=== PATIENT | female | born 1960 | race Caucasian/White ===

== ENCOUNTER 2020-12-08 15:31 | Outpatient (REF) | payer OTHER, SELFPAY ==
[2020-12-08 16:20] LABS: Influenza A PCR NEGATIVE (Negative); Influenza B PCR NEGATIVE (Negative); Resp Syncy Virus RNA Qual PCR NEGATIVE (Negative); SARS COV2 PCR INHOUSE NEGATIVE (Negative)
== END 2020-12-08 15:32 | disposition home or self-care (01) ==
LOC: HO.LNP 15:31
PROVIDERS: Visit Provider Internal Medicine
DX: M79.10 Myalgia, unspecified site (principal); Z20.822 Contact with and (suspected) exposure to COVID-19; J34.89 Other specified disorders of nose and nasal sinuses
CPT/HCPCS: 0241U

== ENCOUNTER 2021-09-02 12:53 | Outpatient (REF) | payer OTHER, SELFPAY ==
[2021-09-04 06:47] LABS: Lyme Abs Screen <0.90 index
== END 2021-09-02 12:54 | disposition home or self-care (01) ==
LOC: HO.HMGCLDS 12:53
PROVIDERS: PCP Internal Medicine; Visit Provider Internal Medicine
DX: T14.8XXA Other injury of unspecified body region, initial encounter (principal); W57.XXXA Bitten or stung by nonvenomous insect and other nonvenomous arthropods, initial encounter; Y93.9 Activity, unspecified; Y92.9 Unspecified place or not applicable; Y99.9 Unspecified external cause status
CPT/HCPCS: 36415; 86617; 86618

== ENCOUNTER 2021-11-26 13:59 | Outpatient (REF) | payer OTHER, SELFPAY ==
[2021-11-26 15:21] LABS: Influenza A PCR NEGATIVE (Negative); Influenza B PCR NEGATIVE (Negative); Resp Syncy Virus RNA Qual PCR NEGATIVE (Negative); SARS COV2 PCR INHOUSE NEGATIVE (Negative)
== END 2021-11-26 14:00 | disposition home or self-care (01) ==
LOC: HO.LNP 13:59
PROVIDERS: Visit Provider Internal Medicine
DX: Z20.822 Contact with and (suspected) exposure to COVID-19 (principal)
CPT/HCPCS: 0241U

== ENCOUNTER 2022-03-18 09:34 | Outpatient (REF) | payer OTHER, SELFPAY ==
[2022-03-20 05:21] LABS: Lyme Abs Screen <0.90 index
== END 2022-03-18 09:35 | disposition home or self-care (01) ==
LOC: HO.HMGCLDS 09:34
PROVIDERS: Visit Provider Internal Medicine
DX: T14.8XXA Other injury of unspecified body region, initial encounter (principal); W57.XXXA Bitten or stung by nonvenomous insect and other nonvenomous arthropods, initial encounter
CPT/HCPCS: 36415; 86617; 86618

== ENCOUNTER 2022-12-20 11:41 | Outpatient (REF) | payer OTHER, SELFPAY ==
[2022-12-20 12:39] LABS: Influenza A PCR NEGATIVE (Negative); Influenza B PCR NEGATIVE (Negative); Resp Syncy Virus RNA Qual PCR NEGATIVE (Negative); SARS COV2 PCR INHOUSE POSITIVE (Negative)
== END 2022-12-20 11:42 | disposition home or self-care (01) ==
LOC: HO.LNP 11:41
PROVIDERS: Visit Provider Internal Medicine
DX: Z20.822 Contact with and (suspected) exposure to COVID-19 (principal); R05.9 Cough, unspecified; R68.83 Chills (without fever)
CPT/HCPCS: 0241U

== ENCOUNTER 2023-03-09 06:10 | Outpatient (REF) | payer OTHER, SELFPAY ==
[2023-03-09 11:27] LABS: MANUAL DIFF FLAG NO
[2023-03-09 11:37] LABS: Basophils Percent Auto 0.9 % (0-2); Eosinophils Absolute Auto 0.1 X10*3/uL (0.0-0.4); Eosinophils Percent Auto 3.1 % (0-4); Hematocrit 46.7 % (37.0-47.0); Hemoglobin 14.8 g/dl (12.0-16.0); Imm Gran Abs Auto 0.01 X10*3/uL (0.00-0.03); Imm Gran Pct Auto 0.2 % (0.0-0.4); Lymphocytes Absolute Auto 1.9 X10*3/uL (1.2-4.9); Lymphocytes Percent Auto 41.8 % (20-40); Mean Corpuscular HGB Conc 31.7 g/dl (31.0-35.0); Mean Corpuscular Hemoglobin 29.7 pg (27.0-33.0); Mean Corpuscular Volume 93.8 fL (80.0-98.0); Mean Platelet Volume 11.4 fL (9.4-12.3); Monocytes Absolute Auto 0.4 X10*3/uL (0.1-1.2); Monocytes Percent Auto 7.9 % (2-11); Neutrophils Absolute Auto 2.1 x10*3/uL (2.0-8.3); Neutrophils Percent Auto 46.1 % (45-73); Platelet Count 188 X10*3/uL (160-400); Red Blood Count 4.98 X10*6/uL (4.20-5.50); Red Cell Distribution Width 13.2 % (11.0-16.0); White Blood Count 4.5 X10*3/uL (4.8-10.8)
[2023-03-09 12:09] LABS: Alanine Aminotransferase 17 U/L (0-31); Albumin Level 4.2 g/dL (3.5-5.0); Alkaline Phosphatase 63 U/L (39-117); Anion Gap 11 (12-20); Aspartate Amino Transferase 19 U/L (5-31); Bilirubin Total 0.7 mg/dL (0.0-1.0); Blood Urea Nitrogen 16 mg/dL (9-16); Calcium 9.4 mg/dL (8.4-10.2); Carbon Dioxide 29 mmol/L (22-29); Chloride 107 mmol/L (96-108); Cholesterol 318 mg/dL; Estimated Glomerular Filt Rate > 60; Glucose Fasting 95 mg/dL (60-99); HDL Cholesterol 69 mg/dL; LDL Cholesterol Calculated 233 mg/dl; Magnesium 2.1 mg/dL (1.6-2.6); Sodium 142 mmol/L (135-145); Total Protein 6.5 g/dL (6.5-8.0); Triglycerides 81 mg/dL
[2023-03-09 12:28] LABS: Thyroid Stimulating Hormone 5.15 uIU/mL (0.32-4.0)
== END 2023-03-09 06:11 | disposition home or self-care (01) ==
LOC: HO.HMGCLDS 06:10
PROVIDERS: PCP Internal Medicine; Visit Provider Internal Medicine
DX: Z00.00 Encounter for general adult medical examination without abnormal findings (principal); E03.9 Hypothyroidism, unspecified
CPT/HCPCS: 36415; 80053; 80061; 83735; 84439; 84443; 85025

== ENCOUNTER 2023-09-07 09:46 | Outpatient (REF) | payer OTHER, SELFPAY ==
--- NOTE | ~2023-09-07 | MM_ITS ---
EXAMINATION: MM SCREENING DIGITAL BREAST TOMOSYNTHESIS, BILATERAL CLINICAL INFORMATION: Screening. Asymptomatic. COMPARISON: Mammography: This study is compared with prior exams dating back to 2009. TECHNIQUE: Digital breast tomosynthesis is performed in both the craniocaudal and mediolateral oblique views along with computer-aided detection (CAD). Synthesized 2D images are generated from the tomosynthesis. FINDINGS: The breasts are heterogeneously dense, which may obscure small masses (ACR BI-RADS breast composition Category c). There are no significant masses, abnormal calcifications, or other abnormalities. Benign calcifications are present in each breast. MM/MM tomosynthesis screening BI IMPRESSION: No mammographic evidence of malignancy. ASSESSMENT: BI-RADS BI-RADS 2 - Benign Findings RECOMMENDATION: Routine annual mammography screening. 1 year F/U This examination should not preclude the clinical evaluation of a suspicious palpable abnormality. This patient's information was entered into a reminder system with a target due date for their next mammogram.
== END 2023-09-07 09:47 | disposition home or self-care (01) ==
LOC: HO.MAMMO 09:46
PROVIDERS: PCP Internal Medicine; Visit Provider Internal Medicine
DX: Z12.31 Encounter for screening mammogram for malignant neoplasm of breast (principal)
CPT/HCPCS: 77063; 77067

== ENCOUNTER → 2023-09-07 10:00 | Outpatient (BNV) | payer OTHER, SELFPAY | PROVIDERS: PCP Internal Medicine; Visit Provider Radiology Diagnostic Radiology | DX: Z12.31 Encounter for screening mammogram for malignant neoplasm of breast (principal) | CPT/HCPCS: 77063; 77067 ==

== ENCOUNTER 2024-04-16 14:54 | Outpatient (REF) | payer OTHER, SELFPAY ==
--- NOTE | ~2024-04-16 | XR_ITS ---
EXAMINATION: XR SINUSES CLINICAL INFORMATION: Sinus pressure for 24 hours, worse on the right side COMPARISON: X-ray sinuses on 02/05/2013 TECHNIQUE: Cintron, Roly, submental vertical and lateral views of the sinuses were obtained. FINDINGS: Paranasal sinuses appear clear without air-fluid levels. Nasal septum is midline. No fractures are identified. No radiodense foreign bodies. XR/XR sinus min 3V IMPRESSION: Unchanged normal sinus x-ray.
== END 2024-04-16 14:55 | disposition home or self-care (01) ==
LOC: HO.XRAY 14:54
PROVIDERS: PCP Internal Medicine; Visit Provider Internal Medicine
DX: J34.89 Other specified disorders of nose and nasal sinuses (principal)
CPT/HCPCS: 70220

== ENCOUNTER 2024-09-07 16:34 | Outpatient (REF) | payer OTHER, SELFPAY ==
[2024-09-07 16:43] LABS: MANUAL DIFF FLAG NO
[2024-09-07 17:10] LABS: Basophils Percent Auto 0.5 % (0-2); Eosinophils Absolute Auto 0.1 X10*3/uL (0.0-0.4); Eosinophils Percent Auto 1.4 % (0-4); Hematocrit 45.4 % (37.0-47.0); Hemoglobin 15.3 g/dl (12.0-16.0); Imm Gran Abs Auto 0.02 X10*3/uL (0.00-0.03); Imm Gran Pct Auto 0.2 % (0.0-0.4); Lymphocytes Absolute Auto 1.3 X10*3/uL (1.2-4.9); Lymphocytes Percent Auto 15.2 % (20-40); Mean Corpuscular HGB Conc 33.7 g/dl (31.0-35.0); Mean Corpuscular Hemoglobin 31.1 pg (27.0-33.0); Mean Corpuscular Volume 92.3 fL (80.0-98.0); Mean Platelet Volume 10.5 fL (9.4-12.3); Monocytes Absolute Auto 0.5 X10*3/uL (0.1-1.2); Neutrophils Absolute Auto 6.6 x10*3/uL (2.0-8.3); Neutrophils Percent Auto 76.7 % (45-73); Platelet Count 195 X10*3/uL (160-400); Red Blood Count 4.92 X10*6/uL (4.20-5.50); Red Cell Distribution Width 12.9 % (11.0-16.0); White Blood Count 8.6 X10*3/uL (4.8-10.8)
[2024-09-07 17:37] LABS: Alanine Aminotransferase 54 U/L (0-31); Albumin Level 4.4 g/dL (3.5-5.0); Alkaline Phosphatase 64 U/L (39-117); Anion Gap 12 (12-20); Aspartate Amino Transferase 52 U/L (5-31); Blood Urea Nitrogen 10 mg/dL (9-16); Calcium 9.6 mg/dL (8.4-10.2); Carbon Dioxide 28 mmol/L (22-29); Chloride 104 mmol/L (96-108); Estimated Glomerular Filt Rate > 60; Glucose Random 125 mg/dL (60-115); Potassium 4.6 mmol/L (3.3-5.1); Sodium 139 mmol/L (135-145); Total Protein 7.1 g/dL (6.5-8.0)
== END 2024-09-07 16:35 | disposition home or self-care (01) ==
LOC: HO.LAB 16:34
PROVIDERS: PCP Internal Medicine; Visit Provider Internal Medicine
DX: R10.9 Unspecified abdominal pain (principal)
CPT/HCPCS: 36415; 80053; 85025

== ENCOUNTER 2024-09-25 09:31 | Outpatient (REF) | payer OTHER, SELFPAY ==
[2024-09-25 10:30] LABS: Estimated Average Glucose 105 mg/dL; Hemoglobin A1C 130.5354 umol/L; Hemoglobin A1c % 5.3 % (<6.0); Total Hemoglobin (HGBA1C) 3851.7443 umol/L
[2024-09-25 10:58] LABS: Alanine Aminotransferase 25 U/L (0-31); Albumin Level 4.3 g/dL (3.5-5.0); Alkaline Phosphatase 68 U/L (39-117); Anion Gap 14 (12-20); Aspartate Amino Transferase 27 U/L (5-31); Bilirubin Total 0.6 mg/dL (0.0-1.0); Blood Urea Nitrogen 16 mg/dL (9-16); Calcium 9.5 mg/dL (8.4-10.2); Carbon Dioxide 26 mmol/L (22-29); Chloride 106 mmol/L (96-108); Estimated Glomerular Filt Rate > 60; Glucose Random 85 mg/dL (60-115); Potassium 4.8 mmol/L (3.3-5.1); Sodium 141 mmol/L (135-145); Total Protein 7.1 g/dL (6.5-8.0)
== END 2024-09-25 09:32 | disposition home or self-care (01) ==
LOC: HO.HMGCLDS 09:31
PROVIDERS: PCP Internal Medicine; Visit Provider Internal Medicine
DX: R73.03 Prediabetes (principal)
CPT/HCPCS: 36415; 80053; 83036

== ENCOUNTER 2025-02-15 08:08 | Outpatient (AMB) | payer OTHER, SELFPAY ==
[2025-02-15 08:28] VITALS: BP 150/100; PULSE 96; O2SAT 100
--- NOTE | 2025-02-15 08:28 | AM.OFFWIN_ITS ---
Intake Vital Signs 02/15/25 08:28 Weight 142 lb BP 150/100 H Blood Pressure Location Rt brachial Position Sitting Pulse 96 Pulse Source Pulse Oximeter Pulse Oximetry (%) 100 Oxygen Delivery Method Room Air Intake Visit Reasons: EP RT leg sore/swollen/pain Intake Note: Patient here for right leg soreness, pain and swelling that started last tuesday. Patient Tobacco Use Status: Never used Tobacco Allergies colchicine Adverse Reaction (Severe, Verified 02/15/25 08:30) Genital area swelling. Do you need a note to return to daycare/school/sports/work: No HPI HPI Comments History of Present Illness Details This is a 64-year-old female who presented to the walk-in clinic right lower extremity pain and swelling x 5 days. Patient states there was no specific trauma or injury to the area; however, they were at a the day before her symptoms started and she was going from kneeling to standing quite often. She states that she then did some pretty heavy yard work, which caused the pain and swelling to worsen. She states the pain is mostly located at the back of her knee and proximal calf. She denies any numbness/weakness/paresthesias of her right lower extremity. She denies any chest pain or shortness of breath. She denies any recent long travel although did drive an hour and a half to the and an hour and a half back home. She denies any exogenous estrogen. She denies any recent surgeries. She denies any erythema or ecchymosis of the right lower extremity and she denies any fevers or chills. [facility]LY [facility] Social History Patient Tobacco Use Status: Never used Tobacco Review of Systems Const All systems reviewed & are unremarkable except as noted in HPI and below Reports no additional complaints Eyes Reports no additional complaints ENT Reports no additional complaints Card Reports no additional complaints Resp Reports no additional complaints GI Reports no additional complaints Reports no additional complaints Musc Reports no additional complaints Skin/Breast Reports system reviewed and no additional complaints, except as documented Neuro Reports no additional complaints Psych Reports no additional complaints Endo Reports no additional complaints [place]/Lymph Reports no additional complaints Aller/Immun Reports no additional complaints Physical Exam Vital Signs: Last Vital Signs Pulse 96 02/15/25 08:28 BP 150/100 H 02/15/25 08:28 Pulse Ox 100 02/15/25 08:28 Oxygen Delivery Method Room Air 02/15/25 08:28 Const Other: Vital signs reviewed. Constitutional: Non-toxic appearing. No acute distress. Well-developed and well-nourished. HEENT: Normocephalic and atraumatic. Skin: Warm and dry. No rashes or lesions noted. Neck: Full and painless range of motion. No cervical lymphadenopathy. Cardio: Regular rate and rhythm. No murmurs, gallops, or rubs. No JVD. 2+ DP/PT pulses on the right. Pulmonary: No respiratory distress. No accessory muscle usage. Gastrointestinal: Soft, nontender, and nondistended in all 4 quadrants. Musculoskeletal: There is swelling of the right lower extremity extending from the knee to her ankle. There is no significant calf tenderness to palpation. There is no tenderness to palpation of the knee joint. Negative Homans sign. Neuro: Alert and oriented x4. Cranial nerves 2-12 grossly intact. No focal deficits appreciated. Psych: Normal mood and affect. Assessment & Plan Assessment & Plan (1) Localized swelling of right lower extremity: Code(s): R22.41 - Localized swelling, mass and lump, right lower limb Plan This is a 64-year-old female who presented to the walk-in clinic right lower ext remity pain and swelling x 5 days. On physical examination, there is swelling of the right lower extremity without any significant tenderness to palpation and negative Homans sign. The differential diagnosis includes calf sprain/strain versus deep vein thrombosis. Recommended rest/activity modification, ice to the area, elevation of the extremity, and continue with acetaminophen/ibuprofen for pain management as long as patient has no medical contraindications. A stat US venous duplex of the right lower extremity was ordered to rule out deep vein thrombosis. Patient was advised to if she were to develop worsening swelling or pain, color changes of the right lower extremity, or chest pain/shortness of breath. Patient verbalized understanding and is agreeable with the plan and she and her were extremely appreciative of the help today. Orders: Orders US venous duplex LE RT Today R22.41 - Localized swelling, mass and lump, right lower limb Coding Level of Care Code Est Pt Level 3 (04829) Diagnoses Localized swelling of right lower extremity R22.41
== END 2025-02-15 09:07 | disposition home or self-care (01) ==
PROVIDERS: PCP Internal Medicine; Visit Provider Physician Assistant Medical
DX: R22.41 Localized swelling, mass and lump, right lower limb (principal)

== ENCOUNTER 2025-02-15 08:08 | Outpatient (REF) | payer OTHER, SELFPAY | END 2025-02-15 08:09 | disposition home or self-care (01) | LOC: HO.HMGCX 08:08 | PROVIDERS: PCP Internal Medicine; Visit Provider Physician Assistant Medical | DX: Z13.89 Encounter for screening for other disorder (principal) ==

== ENCOUNTER 2025-02-15 09:16 | Outpatient (REF) | payer OTHER, SELFPAY ==
--- NOTE | ~2025-02-15 | US_ITS ---
EXAMINATION: US TRIPLEX LOWER EXTREMITY, RIGHT CLINICAL INFORMATION: Edema, right lower extremity. COMPARISON: None available. TECHNIQUE: Color-flow triplex imaging with spectral analysis and compression Doppler were performed on the right lower extremity. FINDINGS: Respiratory variation, normal compression and augmented flow are noted throughout the visualized common femoral vein, superficial femoral vein, profunda femoral vein, popliteal vein and midcalf peroneal and posterior tibial venous. There is no Rae's cyst. US/US venous duplex LE RT IMPRESSION: No acute deep venous thrombosis involving the right lower extremity. Negative for DVT. Electronically signed by: Dario Christensen MD 02/15/2025 09:51 AM EDT
== END 2025-02-15 09:17 | disposition home or self-care (01) ==
LOC: HO.HMGCX 09:16
PROVIDERS: PCP Internal Medicine; Visit Provider Physician Assistant Medical
DX: R22.41 Localized swelling, mass and lump, right lower limb (principal); M79.604 Pain in right leg
CPT/HCPCS: 93971

== ENCOUNTER → 2025-02-15 09:23 | Outpatient (BNV) | payer OTHER, SELFPAY | PROVIDERS: PCP Internal Medicine; Visit Provider Radiology Diagnostic Radiology | DX: R22.41 Localized swelling, mass and lump, right lower limb (principal) | CPT/HCPCS: 93971 ==

== ENCOUNTER 2025-03-20 10:00 | Outpatient (REF) | payer OTHER, SELFPAY | END 2025-03-20 10:01 | disposition home or self-care (01) | LOC: HO.MAMMO 10:00 | PROVIDERS: PCP Internal Medicine; Visit Provider Internal Medicine | DX: Z12.31 Encounter for screening mammogram for malignant neoplasm of breast (principal) | CPT/HCPCS: 77063; 77067 ==

== ENCOUNTER → 2025-03-20 10:15 | Outpatient (BNV) | payer OTHER, SELFPAY | PROVIDERS: PCP Internal Medicine; Visit Provider Internal Medicine | DX: Z12.31 Encounter for screening mammogram for malignant neoplasm of breast (principal) | CPT/HCPCS: 77063; 77067 ==

== ENCOUNTER 2025-04-24 08:15 | Outpatient (REF) | payer OTHER, SELFPAY ==
--- NOTE | ~2025-04-24 | US_ITS ---
EXAMINATION: MM DIAGNOSTIC DIGITAL BREAST TOMOSYNTHESIS, LEFT Limited left breast ultrasound. CLINICAL INFORMATION: Call back from screening for focal asymmetry in the upper-outer breast with associated distortion and calcifications. COMPARISON: Mammography: Priors on PACS. TECHNIQUE: Digital breast tomosynthesis is performed in both the craniocaudal and mediolateral oblique views along with computer-aided detection (CAD). Synthesized 2D images are generated from the tomosynthesis. FINDINGS: The breasts are heterogeneously dense, which may obscure small masses (ACR BI-RADS breast composition Category c). Focal asymmetry in the upper outer breast middle to posterior depth with associated punctate calcifications and associated distortion persist on additional imaging projections. No other abnormal findings. Targeted color Doppler ultrasound scanning in the upper central breast and upper outer quadrant demonstrates a minimally complicated cyst versus solid mass at 3:00 8 cm from the nipple measuring 3 x 7 x 4 mm. There are adjacent minimally complicated cysts versus solid masses at 3:00 8 cm from nipple measuring 5 x 2 x 7 mm and at 3:00 3 cm from the nipple a hypoechoic oval solid mass versus complicated cyst measuring 3 x 3 x 3 mm. US/US breast LT limited mamm only IMPRESSION: 1. Focal asymmetry with associated distortion and punctate calcifications in the upper outer left breast. Recommend stereotactic core needle biopsy at this time for confirmation. The findings and recommendations were discussed with the patient the procedure will be scheduled. 2. Hypoechoic oval solid masses versus complicated cyst at 3:00 8 cm from the nipple at 3:00 2 cm from nipple. Management will be pending pathology from the above mass to include a six-month follow-up for further evaluation of stability. ASSESSMENT: BI-RADS BI-RADS 4 - Suspicious finding RECOMMENDATION: Biopsy recommended Results were provided to the patient at time of visit by the technologist. This patient's information was entered into a reminder system with a target due date for their next mammogram. Electronically signed by: Lucila Dior DO 04/24/2025 11:17 AM EDT
== END 2025-04-24 08:16 | disposition home or self-care (01) ==
LOC: HO.MAMMO 08:15
PROVIDERS: PCP Internal Medicine; Visit Provider Internal Medicine
DX: N64.89 Other specified disorders of breast (principal); R92.8 Other abnormal and inconclusive findings on diagnostic imaging of breast
CPT/HCPCS: 76642; 77061; 77065

== ENCOUNTER → 2025-04-24 09:00 | Outpatient (BNV) | payer OTHER, SELFPAY | PROVIDERS: PCP Internal Medicine; Visit Provider Internal Medicine | DX: N60.02 Solitary cyst of left breast (principal); N63.20 Unspecified lump in the left breast, unspecified quadrant | CPT/HCPCS: 76642; 77061; 77065 ==

== ENCOUNTER 2025-05-06 09:23 | Outpatient (AMB) | payer OTHER, SELFPAY ==
--- NOTE | 2025-05-06 09:15 | A.OFFPC_ITS ---
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 Medication List - Last Reconciled 05/06/25 by Nitesh Galindo MD levothyroxine (Synthroid) mcg PO Tobacco use date assessed: 05/06/25 Fall risk assessment: No Falls in past year Last assessed Fall Risk: 05/06/25 Dental Screening Dental Screen Date: 05/06/25 Did you have a dental visit in the last 12 months?: Yes Did you have a dental problem in the last 6 months where you did not have access to dental care?: No [facility] Medical History (Updated 05/06/25 @ 09:53 by Nitesh Galindo MD) White coat syndrome with hypertension Hypothyroidism Family History Mother No problems noted. Father No problems noted. Social History Housing: House Patient Tobacco Use Status: Former Tobacco user e-Cigarette/Vaping Use: Former Use service: No Current occupational status: retired Cognitive needs: No Hearing needs: No Vision needs: Yes (reading glasses) Questionnaire PHQ-9 Over the last 2 weeks, how often have you been bothered by any of the following problems? 1. Little interest or pleasure in doing things: not at all 2. Feeling down, depressed, or hopeless: not at all 3. Trouble falling or staying asleep, or sleeping too much: not at all 4. Feeling tired or having little energy: not at all 5. Poor appetite or overeating: not at all 6. Feeling bad about yourself - or that you are a failure or have let yourself or your family down: not at all 7. Trouble concentrating on things, such as reading the newspaper or watching television: not at all 8. Moving or speaking so slowly that other people could have noticed. Or the opposite - being so fidgety or restless that you have been moving around a lot more than usual: not at all 9. Thoughts that you would be better off or of hurting yourself in some way: not at all Total score: 0 Depression Screening Interpretation: Negative Depression Screening Done: Yes Source: Developed by Drs. Manuel Schroeder, Phuong King, Eliazar Cedillo and colleagues, with an educational fabrizio from [employer]. Thrive Questionnaire Date Thrive assessed: 05/06/25 I am a: Patient Within the past 12 months, did the food you bought not last and you didn't have the money to get more?: Never true Within the past 12 months, did you worry whether your food would run out before you got money to buy more?: Never true Do you have trouble paying for medicines?: No Do you have trouble getting transportation to medical appointments?: No Do you have trouble paying your heating and electricity bill?: No Do you have trouble taking care of your child, family member or friend?: No Do you have trouble with day-to-day activities such as bathing, preparing meals, shopping, managing finances, etc.?: No Are you currently unemployed and looking for a job?: No Are you interested in more education?: No Currently or been in a relationship where the following occur: No concerns reported THRIVE Score: 0 AUDIT C Alcohol Use Questionnaire (AUDIT-C) 1. How often do you have a drink containing alcohol?: Never 3. How often do you have six or more drinks on one occasion?: Never Total Score: 0 SOBEIDA-7 AMB Questionnaire SOBEIDA-7 Date SOBEIDA - 7 assessed: 05/06/25 Feeling nervous, anxious, or on edge: 0 = Not at all Not being able to stop or control worryin = Not at all Worrying too much about different things: 0 = Not at all Trouble relaxin = Not at all Being so restless that it is hard to sit still: 0 = Not at all Becoming easily annoyed or irritable: 0 = Not at all Feeling afraid as if something awful might happen: 0 = Not at all Total SOBEIDA-7 score (0-4 normal; 5-9 mild; 10-14 moderate; 15-21 severe): 0 Source: Developed by Drs. Manuel Schroeder, Phuong King, Eliazar Cedillo and colleagues, with an educational fabrizio from [employer]. Physical exam (Primary Care) Vital Signs: Last Vital Signs Temp 97.6 F 05/06/25 09:26 Pulse 85 05/06/25 09:26 BP 150/90 H 05/06/25 09:26 Pulse Ox 98 05/06/25 09:26 Oxygen Delivery Method Room Air 05/06/25 09:26 BMI result Body Mass Index 21.0 Tobacco/Smoking Status: Tobacco use Status Tobacco use date assessed 05/06/25 05/06/25 09:17 Patient Tobacco Use Status Former Tobacco user 05/06/25 09:31 e-Cigarette/Vaping Use Former Use 05/06/25 09:31 PHQ-9: PHQ-9 Score PHQ-9: Total score 0 05/06/25 09:31 Depression Screening Interpretation: Negative Thrive Assessment: Date of Thrive Assessment Date Thrive assessed 05/06/25 05/06/25 09:17 Currently or been in a relationship where the following occur: No concerns reported Advance Care Planning discussion: Exists, not on file Date of discussion: 05/06/25 Forms completed: Health Care Proxy and MOLST Coding Level of Care Code New Pt Level 4 (89022) Complex EM visit Add On G2211 Diagnoses Hypothyroidism E03.9 White coat syndrome with hypertension I10 Additional Codes Vital Signs *Quality* - Advance Care Planning discussion: Exists, not on file ([id number]) Assessment & Plan Assessment & Plan (1) Hypothyroidism: Code(s): E03.9 - Hypothyroidism, unspecified Category: Medical Plan: TSH to be checked. Will call with result and adjust medication accordingly (2) White coat syndrome with hypertension: Code(s): I10 - Essential (primary) hypertension Category: Medical Plan: Elevated BP noted. Patient reports she has white coat syndrome, where BP recorded at home are in the normal range. Advised to keep checking BP at home. Plan History of Present Illness - The patient is a 65-year-old female presenting with a routine follow-up and management of hypothyroidism. - Continues levothyroxine (Synthroid) ; thyroid function to be monitored with fasting blood work now. - Screening history includes a Cologuard test last year and a mammogram conducted in March, with an upcoming biopsy. - The occurrence of white coat syndrome in a clinical setting acknowledged; home monitoring shows regular blood pressure readings. - No recent consultations with a residential case manager; the patient plans to follow-up as needed. Social History - Reports staying at home, , as she was caring for her mother until she . - Engages in daily physical activity, walking at least 10,000 steps a day, accompanied by her two dogs. - Consumes alcohol occasionally, limited to a glass of wine sometimes. - Denies tobacco use. - Drives both during the day and at night without visual impairments such as halos. Review of Systems - Cardiovascular: Denies ongoing hypertension, with history of white coat syndrome. - Endocrine: Reports hypothyroidism, managed with levothyroxine (Synthroid). - Gastrointestinal: Denies bowel issues; has completed Cologuard screening. - Genitourinary: Denies urinary issues. - Neurological: Denies visual halos. Physical Exam General: Cooperative and healthy appearing Nutritional Appearance: Well nourished Orientation/consciousness: Patient oriented x3 Limitations: No limitations Head: Normal to inspection General: Appearance normal, both eyes and all related structures Neck: Normal visual inspection Chest: Normal palpation of entire chest wall Respiratory: N ormal respiratory effort Neurology: Patient oriented x3, no halos, drives at night without issues. Results - Labs: Thyroid function tests and fasting blood work to be conducted. - Tests: Cologuard test completed last year, results to be reviewed. Mammogram conducted in March; biopsy scheduled. Plan 1. Hypothyroidism - Obtain fasting blood work to assess thyroid function. - Continue Synthroid as prescribed; coordiante with pharmacy for prescriptions as needed. 2. Colorectal Cancer Screening - Evaluate results from last year's Cologuard test. 3. White Coat Syndrome - Monitor blood pressure at home to confirm stability. 4. Mammography Follow-Up - Follow up with biopsy and evaluate post-mammogram results. Discussion Notes During the consultation, I explained the importance of ongoing thyroid management and the necessity of checking thyroid function through fasting blood work. We discussed her colorectal cancer screening via the Cologuard test completed last year, and I emphasized reviewing these results as part of her cancer screening plan. Her blood pressure remains a concern due to white coat syndrome; I advised her to continue home monitoring and report any significant variations to ensure accurate evaluation. Regarding her recent mammogram, I informed her about the importance of post-procedural follow-up, including her upcoming biopsy, to ensure timely management. Collaboration with her pharmacy for SYNTHROID prescription renewals was also discussed, supporting treatment adherence. Patient Instructions - Continue taking Synthroid as prescribed and monitor for any changes. - Get fasting blood work done for thyroid assessment as instructed. - Monitor blood pressure at home and report any significant changes. - Attend the biopsy appointment as scheduled and follow up for results as needed. - Contact pharmacy for Synthroid refills before running out. - Schedule a gynecological visit when convenient and when ready. Orders: Orders Basic Metabolic Panel Today E03.9 - Hypothyroidism, unspecified Lipid Panel Today E03.9 - Hypothyroidism, unspecified Liver Panel Today E03.9 - Hypothyroidism, unspecified Complete Blood Count no Diff Today E03.9 - Hypothyroidism, unspecified Thyroid Stimulating Hormone Today E03.9 - Hypothyroidism, unspecified UA and rflx microscopic Today E03.9 - Hypothyroidism, unspecified
[2025-05-06 09:26] VITALS: BP 150/90; PULSE 85; TEMP 36.4; O2SAT 98; BMI 21.0
== END 2025-05-06 10:57 | disposition home or self-care (01) ==
LOC: HO.HMCHD 09:24
PROVIDERS: PCP Internal Medicine; Visit Provider Internal Medicine
DX: E03.9 Hypothyroidism, unspecified (principal); I10 Essential (primary) hypertension; Z00.00 Encounter for general adult medical examination without abnormal findings

== ENCOUNTER → 2025-05-06 09:23 | Outpatient (BNVA) | payer OTHER, SELFPAY | PROVIDERS: PCP Internal Medicine; Visit Provider Internal Medicine ==

== ENCOUNTER 2025-05-09 08:19 | Outpatient (AMB) | payer OTHER, SELFPAY ==
[2025-05-09 08:29] VITALS: BP 150/90; PULSE 88; BMI 20.5
--- NOTE | 2025-05-09 08:29 | MHC.OFFVIS ---
Vital Signs 05/09/25 08:29 Height 5 ft 8 in Weight 135 lb BMI 20.5 BP 150/90 H Blood Pressure Location Lt brachial Position Sitting Pulse 88 Intake Visit Reasons: left brst stereo BX 3 o clock Intake Note: Pt states, I'm here because they found calcifications on my mammo. 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 Medication List - Last Reconciled 05/09/25 by Abhilash Marsh RN levothyroxine (Synthroid) mcg PO HPI HPI left brst stereo BX 3 o clock: Details: 65-year-old female referred for an abnormal mammogram of the left breast. She had a recent screening mammogram showing focal asymmetry in the upper outer quadrant of the left breast. She was brought in for diagnostic mammogram and ultrasound with note of focal asymmetry in the upper outer breast of the left breast with associated punctate calcifications and distortion. A stereotactic biopsy was recommended by the radiologist. There was a hypoechoic oval solid versus complicated cyst at the 3 o'clock position of the left breast as well and a six-month follow-up was recommended for this The patient does not feel any breast mass. Her menarche was the age of 12. She was never . She had menopause in her 50s. She denies any strong family history of breast cancer. She did have a previous excision of a benign mass on the right breast [facility] Medical History (Updated 05/09/25 @ 08:32 by Abhilash Marsh RN) Abnormal mammogram of left breast Encounter for colorectal cancer screening using Cologuard test (~03/08/24) White coat syndrome with hypertension Hypothyroidism Surgical History (Updated 05/09/25 @ 08:33 by Abhilash Marsh RN) History of ovarian cystectomy History of back surgery Family History Mother No problems noted. Father No problems noted. Social History Housing: House Patient Tobacco Use Status: Former Tobacco user e-Cigarette/Vaping Use: Former Use service: No Current occupational status: retired Cognitive needs: No Hearing needs: No Vision needs: Yes (reading glasses) Female Reproductive History Menstrual Age of Menarche: 12 Age of menopause: 50 Total pregnancies: 0 Review of Systems Const Denies chills and Denies fever(s) Card Denies chest pain, Denies dyspnea and Denies dyspnea on exertion Resp Denies cough, Denies dyspnea and Denies dyspnea on exertion GI Denies hematochezia and Denies change in bowel habits Denies hematuria Musc Denies back pain and Denies limited range of motion Neuro Denies focal weakness and Denies convulsions Psych Denies depression and Denies mood swings Physical Exam Vital Signs: Last Vital Signs Pulse 88 05/09/25 08:29 BP 150/90 H 05/09/25 08:29 BMI result Body Mass Index 20.5 Const General: comfortable and no acute distress Orientation/consciousness: patient oriented x3 Neck Neck: Yes no lymphadenopathy Chest Other: No palpable breast masses, no nipple or skin changes, no axillary lymphadenopathy Resp Auscultation: clear to auscultation bilaterally Cardio Rhythm: regular rhythm GI Palpation (GI): Soft to palpation, nontender and no guarding Neuro General: patient oriented x3 Assessment & Plan Assessment & Plan (1) Abnormal mammogram of left breast: Code(s): R92.8 - Other abnormal and inconclusive findings on diagnostic imaging of breast Category: Medical Plan: She has this focal asymmetry with associated distortion and calcifications in the upper outer left breast. A stereotactic biopsy was recommended by the radiologist I explained to her the technique of this procedure . I will see her again in the office the week after her biopsy to discuss the path report. Orders: Orders MM stereotactic biopsy LT 05/08/25 R92.8 - Other abnormal and inconclusive findings on diagnostic imaging of breast Coding Level of Care Code New Pt Level 3 (85685) Diagnoses Abnormal mammogram of left breast R92.8
== END 2025-05-09 08:55 | disposition home or self-care (01) ==
LOC: HO.HGS 08:20
PROVIDERS: PCP Internal Medicine; Visit Provider Surgery
DX: R92.8 Other abnormal and inconclusive findings on diagnostic imaging of breast (principal)
CPT/HCPCS: 99203

== ENCOUNTER → 2025-05-09 08:19 | Outpatient (BNVA) | payer OTHER, SELFPAY | PROVIDERS: PCP Internal Medicine; Visit Provider Surgery | DX: R92.8 Other abnormal and inconclusive findings on diagnostic imaging of breast (principal) ==

== ENCOUNTER 2025-05-16 07:51 | Outpatient (REF) | payer OTHER, SELFPAY ==
--- NOTE | ~2025-05-16 | MM_ITS ---
EXAMINATION: STEREOTACTICALLY-GUIDED LEFT BREAST BIOPSY CLINICAL INFORMATION: Grouped calcifications with a focal asymmetry with distortion in the upper outer left breast posterior depth. COMPARISON: [facility] on PACS. INFORMED CONSENT: After the details of the procedure, as well as the risks (including, but not limited to, bleeding, hematoma formation, and infection), benefits and alternatives (including doing nothing, short-interval follow up, and surgery) to the procedure were explained to the patient in detail and all of her questions were answered, informed written consent was obtained. TECHNIQUE/FINDINGS: A timeout was performed. The lesion intended for biopsy was identified stereotactically and targeted. The skin of the left breast was then cleansed with sterile solution. Using stereotactic guidance, aseptic technique, and 1% lidocaine with and without epinephrine for local anesthesia, a total of 12 cores were obtained through the targeted area with a 9-gauge vacuum-assisted Eviva core biopsy device from a superior approach. Specimen radiography reveals the targeted calcifications in the sampled tissue. At the completion of tissue sampling, a single top hat-shaped metallic clip was deposited at the biopsy site. Adequate sampling was achieved. The postprocedure 2-view direct digital mammogram reveals satisfactory positioning of the biopsy clip. The patient tolerated the procedure well and, after assuring adequate hemostasis, was discharged in good condition after reviewing postbiopsy breast care instructions. Final pathology results are pending. MM/MM stereotactic biopsy LT IMPRESSION: 1. Uncomplicated stereotactically-guided core biopsy of the left breast. The 2-view direct digital postprocedure mammogram reveals satisfactory positioning of the biopsy clip. 2. Final pathology results are pending. A separate report with final recommendations will be issued once these results are made available. Electronically signed by: Lucila Dior DO 05/16/2025 11:32 AM EDT
[2025-05-16] MEDS: Sodium Bicarbonate 8.4% 50 MEQ/50 ML VIAL SUBCUT (09:14)
[2025-05-16] MEDS: Lidocaine HCl 1 % 20 ML VIAL 5 ML SUBCUT (09:16)
[2025-05-16] MEDS: Lidocaine HCl 1%/Epi 1:100,000 10 ML VIAL 18 ML SUBCUT (09:17)
== END 2025-05-16 07:52 | disposition home or self-care (01) ==
LOC: HO.MAMMO 07:51
PROVIDERS: PCP Internal Medicine; Visit Provider Surgery
DX: N60.92 Unspecified benign mammary dysplasia of left breast (principal); R92.8 Other abnormal and inconclusive findings on diagnostic imaging of breast
CPT/HCPCS: 19081; 88305; 88342; 88360; A4648; J2003; J2004

== ENCOUNTER → 2025-05-16 07:54 | Outpatient (BNV) | payer OTHER, SELFPAY | PROVIDERS: PCP Internal Medicine; Visit Provider Internal Medicine | DX: N64.89 Other specified disorders of breast (principal) | CPT/HCPCS: 19081; 77065 ==

== ENCOUNTER 2025-05-28 06:34 | Outpatient (REF) | payer OTHER, SELFPAY ==
[2025-05-28 10:16] LABS: Hematocrit 45.1 % (37.0-47.0); Hemoglobin 14.7 g/dl (12.0-16.0); Mean Corpuscular HGB Conc 32.6 g/dl (31.0-35.0); Mean Corpuscular Hemoglobin 29.9 pg (27.0-33.0); Mean Corpuscular Volume 91.7 fL (80.0-98.0); NRBC Abs Auto 0.000 X10*3/uL (0.0-0.012); NRBC Pct Auto 0.0 /100WBC (0.0-0.2); Platelet Count 195 X10*3/uL (160-400); Red Blood Count 4.92 X10*6/uL (4.20-5.50); White Blood Count 4.3 X10*3/uL (4.8-10.8)
[2025-05-28 10:19] LABS: Appearance Urine Turbid; Glucose Urine UA Negative (Negative); PH 5.5 (5.0-9.0); Specific Gravity - Urine 1.020 (1.005-1.025)
[2025-05-28 10:53] LABS: Alanine Aminotransferase 17 U/L (0-31); Albumin Level 4.3 g/dL (3.5-5.0); Alkaline Phosphatase 61 U/L (39-117); Anion Gap 14 (12-20); Aspartate Amino Transferase 21 U/L (5-31); Blood Urea Nitrogen 14 mg/dL (9-16); Calcium 9.2 mg/dL (8.4-10.2); Carbon Dioxide 24 mmol/L (22-29); Chloride 109 mmol/L (96-108); Cholesterol 310 mg/dL (<200); Estimated Glomerular Filt Rate > 60; HDL Cholesterol 66 mg/dL (>40); Potassium 4.1 mmol/L (3.3-5.1); Sodium 143 mmol/L (135-145); Thyroid Stimulating Hormone 0.08 uIU/mL (0.32-4.0); Total Protein 6.6 g/dL (6.5-8.0); Triglycerides 106 mg/dL (<150)
== END 2025-05-28 06:35 | disposition home or self-care (01) ==
LOC: HO.HMGCLDS 06:34
PROVIDERS: PCP Internal Medicine; Visit Provider Internal Medicine
DX: E03.9 Hypothyroidism, unspecified (principal)
CPT/HCPCS: 36415; 80048; 80061; 80076; 81003; 84443; 85027

== ENCOUNTER 2025-06-05 14:21 | Outpatient (AMB) | payer OTHER, SELFPAY ==
--- NOTE | 2025-06-05 14:29 | A.OFFVIS_ITS ---
Vital Signs 06/05/25 14:35 Weight 135 lb BP 175/104 H Blood Pressure Location Rt brachial Position Sitting Pulse 107 H Intake Visit Reasons: s/p stero bx 05/23 Intake Note: Patient here s/p left breast stereotactic biopsy on 05-16-2025. Patient c/o: no concerns. Reports bx site healing well. Natural Resources Specialist Required: No Accompanied by: Spouse Allergies colchicine Adverse Reaction (Severe, Verified 06/05/25 14:34) Genital area swelling. Medication List - Last Reconciled 06/05/25 by Dinesh Wilkinson MD levothyroxine (Synthroid) mcg PO rosuvastatin 10 mg PO DAILY HPI HPI s/p stero bx 05/23: Details: 65-year-old female here for follow-up for an abnormal mammogram of the left breast. She had a recent screening mammogram showing focal asymmetry in the upper outer quadrant of the left breast. She was brought in for diagnostic mammogram and ultrasound with note of focal asymmetry in the upper outer breast of the left breast with associated punctate calcifications and distortion. A stereotactic biopsy was recommended by the radiologist. She therefore had the stereotactic biopsy done last 05/16/2025 and she is here to discuss the results. There was a hypoechoic oval solid versus complicated cyst at the 3 o'clock position of the left breast as well and a six-month follow-up was recommended for this The patient does not feel any breast mass. Her menarche was the age of 12. She was never . She had menopause in her 50s. She denies any strong family history of breast cancer. She did have a previous excision of a benign mass on the right breast [facility] Medical History (Updated 06/05/25 @ 14:51 by Dinesh Wilkinson MD) Atypical ductal hyperplasia of left breast Abnormal mammogram of left breast Encounter for colorectal cancer screening using Cologuard test (~03/08/24) White coat syndrome with hypertension Hypothyroidism Surgical History History of ovarian cystectomy History of back surgery Family History Mother No problems noted. Father No problems noted. Social History Housing: House Patient Tobacco Use Status: Former Tobacco user e-Cigarette/Vaping Use: Former Use service: No Current occupational status: retired Cognitive needs: No Hearing needs: No Vision needs: Yes (reading glasses) Female Reproductive History Menstrual Age of Menarche: 12 Review of Systems Const Denies chills and Denies fever(s) Card Denies chest pain, Denies dyspnea and Denies dyspnea on exertion Resp Denies cough, Denies dyspnea and Denies dyspnea on exertion GI Denies hematochezia and Denies change in bowel habits Denies hematuria Musc Denies back pain and Denies limited range of motion Neuro Denies focal weakness and Denies convulsions Psych Denies depression and Denies mood swings Physical Exam Vital Signs: Last Vital Signs Pulse 107 H 06/05/25 14:35 BP 175/104 H 06/05/25 14:35 Const General: comfortable and no acute distress Orientation/consciousness: patient oriented x3 Neck Neck: Yes no lymphadenopathy Chest Other: No palpable masses, no hematoma on the biopsy site on the left breast Resp Auscultation: clear to auscultation bilaterally Cardio Rhythm: regular rhythm GI Palpation (GI): Soft to palpation, nontender and no guarding Neuro General: patient oriented x3 Assessment & Plan Assessment & Plan (1) Atypical ductal hyperplasia of left breast: Code(s): N60.92 - Unspecified benign mammary dysplasia of left breast Category: Medical Plan: The path report of the stereotactic except for the left breast mass showed complex sclerosing lesion and radial scar with atypical ductal hyperplasia. I explained to her that this has benign lesion. However, this is sometimes associated with a high-grade lesions and a lumpectomy is recommended for this. I explained to her the technique of lumpectomy via Hologic localizer. I reviewed the risks including but not limited to bleeding, infections, hematoma, the need for additional surgeries, as well as the benefits and alternatives She says she understands and wants to proceed with lumpectomy via Hologic localizer. Coding Level of Care Code Est Pt Level 3 (38285) Diagnoses Atypical ductal hyperplasia of left breast N60.92
[2025-06-05 14:35] VITALS: BP 175/104; PULSE 107
== END 2025-06-05 14:49 | disposition home or self-care (01) ==
LOC: HO.HGS 14:22
PROVIDERS: PCP Internal Medicine; Visit Provider Surgery
DX: N60.92 Unspecified benign mammary dysplasia of left breast (principal)
CPT/HCPCS: 99213

== ENCOUNTER 2025-06-26 07:43 | Outpatient (REF) | payer OTHER, SELFPAY ==
--- NOTE | ~2025-06-26 | MM_ITS ---
EXAMINATION: MM MAMMOGRAM GUIDED RFID LOCALIZATION BREAST, LEFT CLINICAL INFORMATION: Left breast atypia and radial scar here for localization. COMPARISON: [facility] on PACS. TECHNIQUE NEEDLE LOC: Proper informed consent is obtained from the patient after discussion of the procedure, potential risks and complications, and alternatives including declining the procedure today. Patient was given an opportunity for questions. The patient appeared to understand. The patient consented to the procedure and signed the consent form. GUIDANCE: Digital mammography. APPROACH: Superior. TARGET: Top hat clip. ANESTHESIA: carbonated lidocaine 1%: 6 mL. LOCALIZATION SYSTEM: -[employer] LOCallizer Wire-Free Guidance System with 12g needle applicator. -Length: 7 cm. -RADIOFREQUENCY TAG: ID # [id number] RF Tag ID confirmed with LOCalizer Guidance System prior to placement. The skin is prepped and local anesthesia administered. The needle is positioned and RFID tag deployed. Final images demonstrate the LOCalizer RF tag to reside adjacent to the clip The patient tolerated the procedure well and had no immediate complications. Dressing placed and home instructions reviewed. MM/MM RF Tag device LT IMPRESSION: -Status post left breast RFID localization. Electronically signed by: Lucila Dior DO 06/26/2025 10:15 AM EDT
[2025-06-26] MEDS: Lidocaine HCl 1 % 20 ML VIAL 7 ML SUBCUT (08:51)
== END 2025-06-26 07:44 | disposition home or self-care (01) ==
LOC: HO.MAMMO 07:43
PROVIDERS: Visit Provider Surgery
DX: N60.92 Unspecified benign mammary dysplasia of left breast (principal)
CPT/HCPCS: 19281; C1819; J2003

== ENCOUNTER → 2025-06-26 08:00 | Outpatient (BNV) | payer OTHER, SELFPAY | PROVIDERS: Visit Provider Internal Medicine | DX: N60.82 Other benign mammary dysplasias of left breast (principal) | CPT/HCPCS: 19281 ==

== ENCOUNTER 2025-07-04 09:09 | Outpatient (REF) | payer OTHER, SELFPAY ==
[2025-07-04 11:27] LABS: Thyroid Stimulating Hormone 75.31 uIU/mL (0.32-4.0)
== END 2025-07-04 09:10 | disposition home or self-care (01) ==
LOC: HO.HMGCLDS 09:09
PROVIDERS: PCP Internal Medicine; Visit Provider Internal Medicine
DX: E03.9 Hypothyroidism, unspecified (principal)
CPT/HCPCS: 36415; 84443

== ENCOUNTER 2025-07-18 05:51 | Day surgery (SDC) | payer OTHER, SELFPAY ==
[2025-07-16 10:54] VITALS: BMI 20.5
[2025-07-18] VITALS (8 sets, daily range): BP systolic 115–193; BP diastolic 66–95; PULSE 58–76; RESP 12–17; TEMP 36.2–36.3; O2SAT 97–100; BMI 20.8
--- NOTE | ~2025-07-18 | MM_ITS ---
Left single specimen radiograph demonstrates the top hat biopsy clip and the LOCalizer tag within the specimen. Electronically signed by: Mynor Smith MD 07/18/2025 08:21 AM EDT
[2025-07-18] MEDS: Lactated Ringers 1,000 ML 100 ML IVCONT (06:41)
--- NOTE | 2025-07-18 07:03 | MHC.SHP ---
Pre-Procedural Eval Section A - 24 Hr Update-Section A only Date of Service: 07/18/25 Section B - Complete if H&P > 30 days Chief Complaint: Unspecified benign mammary dysplasia of left breas Details of Present Illness: Has left breast mass with atypical ductal hyperplasia; lumpectomy today with the Hologic localizer Relevant Family History (Specify if Yes): No Relevant Social History: None Present Medications: see Short Stay Collaborative assessment Medical History: Significant History (Thyroid disease, mitral valve insufficiency, hypertension) History of Previous Operations: No relevant previous surgery Allergies: Allergies Allergy/AdvReac Type Severity Reaction Status Date / Time colchicine AdvReac Severe Genital Verified 07/18/25 06:09 area swelling. Review of Systems Sugical H&P ROS: Negative: Constitution, Cardiovascular, Respiratory and Gastrointestinal Exam Surgical H&P Exam: Normal: Heart, Normal: Lungs and Normal: Abdomen Plan Diagnosis/Plan: Unchanged I have reviewed the history and physical and performed a pertinent physical examination on my patient. No changes have occurred unless specified. Time Spent With Patient Time: Total time managing care of this patient today ____ minutes.
--- NOTE | 2025-07-18 07:09 | P.CONAN_ITS ---
Documented by User: Samantha Wright NP 07/16/25 13:14 HPI - Anesthesia Eval Consult details Narrative: 65yo F for Left Breast Lumpectomy w/LOCalizer Mitral valve insufficiency - Per patient, previously eval'd by cardiology (unsure where or when - no info available on chart review from [facility], [facility]) - pt was told very mild - requires antibiotic prior to dental work - denies SOB, CP, edema - able to walk for exercise without limitations PMF Active Problems Active Problems: All Active Problems Mitral valve insufficiency (Acute) Atypical ductal hyperplasia of left breast (Acute) Abnormal mammogram of left breast (Acute) White coat syndrome with hypertension (Acute) Hypothyroidism (Acute) Past Medical History Medical History Atypical ductal hyperplasia of left breast Abnormal mammogram of left breast Encounter for colorectal cancer screening using Cologuard test (~03/08/24) White coat syndrome with hypertension Hypothyroidism Family History Family History Mother No problems noted. Father No problems noted. Surgical History Surgical History Hx of left breast biopsy (05/16/25) History of ovarian cystectomy History of back surgery Social History Social History Housing: House Are you a primary property caretaker to a significant other at home: No Do you presently have visiting nurse or other home services: No Patient Tobacco Use Status: Former Tobacco user e-Cigarette/Vaping Use: Former Use Use of substances other than those prescribed or required for medical reasons: No Have you been hit, kicked, punched, or otherwise hurt by someone within the past year? If so, by whom?: No Are you DNR?: No Advance Directives: No Advance Directives Information Provided: Yes Patient : No : No Poor oral hygiene: No service: No Current occupational status: retired Cognitive needs: No Hearing needs: No Vision needs: Yes (reading glasses) Meds Allergies Allergy/AdvReac Type Severity Reaction Status Date / Time colchicine AdvReac Severe Genital Verified 07/18/25 06:09 area swelling. Exam Height,Weight and Vital Signs: Height 5 ft 8 in Weight 61.235 kg Pertinent Lab Results Pertinent Lab Results: Laboratory Tests 05/28/25 06:48 WBC 4.3 L Hgb 14.7 Hct 45.1 Plt Count 195 Sodium 143 Potassium 4.1 Chloride 109 H Carbon Dioxide 24 BUN 14 Creatinine 0.70 Assessment and Plan Assessment Anesthesia Assessment: Chart Reviewed Documented by User: Manisha West, 07/18/25 07:11 PMF Past Medical History Medical History Atypical ductal hyperplasia of left breast Abnormal mammogram of left breast Encounter for colorectal cancer screening using Cologuard test (~03/08/24) White coat syndrome with hypertension Hypothyroidism Family History Family History Mother No problems noted. Father No problems noted. Family history of problems with anesthesia: No Surgical History Surgical History Hx of left breast biopsy (05/16/25) History of ovarian cystectomy History of back surgery History of Problems with Anesthesia: No Social History Social History Housing: House Are you a primary property caretaker to a significant other at home: No Do you presently have visiting nurse or other home services: No Patient Tobacco Use Status: Former Tobacco user e-Cigarette/Vaping Use: Former Use Use of substances other than those prescribed or required for medical reasons: No Have you been hit, kicked, punched, or otherwise hurt by someone within the past year? If so, by whom?: No Are you DNR?: No Advance Directives: No Advance Directives Information Provided: Yes Patient : No : No Poor oral hygiene: No service: No Current occupational status: retired Cognitive needs: No Hearing needs: No Vision needs: Yes (reading glasses) Meds Allergies Allergy/AdvReac Type Severity Reaction Status Date / Time colchicine AdvReac Severe Genital Verified 07/18/25 06:09 area swelling. Exam Exam Date and Time: 07/18/25 0710 Height,Weight and Vital Signs: Height 5 ft 8 in Weight 61.235 kg Vital Signs Temperature 97.2 F 07/18/25 06:25 Pulse Rate 68 07/18/25 06:25 Respiratory Rate 12 07/18/25 06:25 Blood Pressure 193/95 H 07/18/25 06:25 Pulse Oximetry 100 07/18/25 06:25 Oxygen Delivery Method Room Air 07/18/25 06:25 Temperature 97.2 F 07/18/25 06:25 Pulse Rate 68 07/18/25 06:25 Respiratory Rate 12 07/18/25 06:25 Blood Pressure 193/95 H 07/18/25 06:25 Pulse Oximetry 100 07/18/25 06:25 Oxygen Delivery Method Room Air 07/18/25 06:25 Airway Mallampati Class: II TM Dist: <=3cm Neck ROM: Full Loose/Missing/Broken Teeth: No (patient denies any loose or broken teeth) Heart: S1S2 Lungs: CTAB Assessment and Plan Assessment Anesthesia Assessment: Anesthesia Plan Discussed and Chart Reviewed Final Anesthetic Review Family History of Problems with Anesthesia: No History of Problems with Anesthesia: No NPO: Yes ASA Class: II Final Preanesthetic Review: No Changes in Pt Med Stat, Meds/Allgs Chart Reviewed, Consent Obtained/Reviewed and Anes Risks/Benef Reviewed Patient Risk: Low Procedure Risk: Low Anesthetic Plan Anesthetic Plan: GA and Agree w/ Assess. and Plan Disposition: Standard PACU
--- NOTE | 2025-07-18 08:07 | P.OP_ITS ---
Operative Note Operative Note Date of Service: 07/18/25 Narrative: Preop diagnosis: Atypical ductal hyperplasia, left breast Postop diagnosis: The same Procedure: Lumpectomy, left breast with Hologic localizer Surgeon: Dinesh Wilkinson MD assistant county attorney: TETE Sanabria The patient is a 65-year-old female who had a recent stereotactic biopsy of a left breast lesion showing atypical ductal hyperplasia. She is here for lumpectomy with the Hologic localizer today because of the association with a high-grade lesions. She understood the technique of the planned procedure as well as the risks, benefits, and alternatives. She had the RF ID tag placed last week. She was brought to the operating room. She was placed supine under general anesthesia via laryngeal mask airway. The left breast area was prepped and draped in the usual sterile fashion. A surgical time-out was done. The patient received cefazolin 2 g IV preoperatively I marked the planned line of incision after using the Hologic localizer to locate for the area of the skin closed this through the RF ID clip. I infiltrated the area with lidocaine 1%. I made a short incision with a blade 15. This was carried down with electrocautery through the full-thickness of the skin subcutaneous fat. I then dissected through the breast tissue using curved Garcia scissors, periodically using the Hologic localizer to make sure that we had the RF ID clip within the specimen. I circumferentially dissected until was able to deliver the specimen. I marked the superior and lateral margins with sutures for orientation Immediate re-ray of the specimen showed the presence of both the biopsy clip as well as the RF ID clip. I irrigated. I observed for hemostasis. Once hemostasis was confirmed, I proceeded to reapposed the deep breast tissue with Polysorb 3-0 simple interrupted sutures. Skin closure was achieved with Polysorb 4-0 subcuticular running sutures. The area was infiltrated with Marcaine 0.5% for postop analgesia. Dressings were applied and the procedure was completed The patient tolerated the procedure well. There were no immediate complications. Initial and final counts of sponges and instruments were correct. Estimated blood loss about 25 cc. The patient was extubated without difficulty and transferred to the recovery room with stable vital signs.
== END 2025-07-18 09:48 | disposition home or self-care (01) ==
PROVIDERS: PCP Internal Medicine; Visit Provider Surgery
PROC: (CPT 19301; principal; 2025-07-18 07:30)
DX: N60.82 Other benign mammary dysplasias of left breast (principal); N64.89 Other specified disorders of breast; N60.42 Mammary duct ectasia of left breast; N60.22 Fibroadenosis of left breast; Z98.890 Other specified postprocedural states; R03.0 Elevated blood-pressure reading, without diagnosis of hypertension; E03.9 Hypothyroidism, unspecified; Z79.899 Other long term (current) drug therapy; Z88.8 Allergy status to other drugs, medicaments and biological substances
CPT/HCPCS: 19301; 88307; J0690; J1100; J2003; J2250; J2405; J2704; J2795; J3010

== ENCOUNTER → 2025-07-18 05:51 | Outpatient (BNV) | payer OTHER, SELFPAY | PROVIDERS: PCP Internal Medicine; Visit Provider Surgery | DX: N60.82 Other benign mammary dysplasias of left breast (principal) | CPT/HCPCS: 19301 ==

== ENCOUNTER 2025-08-01 08:54 | Outpatient (AMB) | payer OTHER, SELFPAY ==
--- NOTE | 2025-08-01 08:57 | A.OFFVIS_ITS ---
Vital Signs 08/01/25 09:15 Weight 134 lb BP 160/90 H Blood Pressure Location Rt brachial Position Sitting Pulse 90 Intake Visit Reasons: s/p lumpectomy lft breast w/localizer Intake Note: Patient here s/p lumpectomy, left breast with Hologic localizer. Patient c/o: no concerns. Reports incision healing well. No longer taking rx pain meds. Surgery: 07-18-2024. [employer] Required: No Accompanied by: Self / Same As Patient Allergies colchicine Adverse Reaction (Severe, Verified 08/01/25 09:01) Genital area swelling. Medication List - Last Reconciled 08/01/25 by Dinesh Wilkinson MD ibuprofen 600 mg PO Q6H PRN levothyroxine (Synthroid) 112 mcg PO DAILY rosuvastatin 10 mg PO DAILY HPI HPI s/p lumpectomy lft breast w/localizer: Details: She had undergone lumpectomy with the localizer last 07/18/2025. She tolerated procedure well. She says she does not take any pain medications anymore and feels well overall. [facility] Medical History Atypical ductal hyperplasia of left breast Abnormal mammogram of left breast Encounter for colorectal cancer screening using Cologuard test (~03/08/24) White coat syndrome with hypertension Hypothyroidism Surgical History History of lumpectomy of left breast Hx of left breast biopsy (05/16/25) History of ovarian cystectomy History of back surgery Family History Mother No problems noted. Father No problems noted. Social History Housing: House Are you a primary transition of care specialist to a significant other at home: No Do you presently have visiting nurse or other home services: No Patient Tobacco Use Status: Former Tobacco user e-Cigarette/Vaping Use: Former Use service: No Current occupational status: retired Cognitive needs: No Hearing needs: No Vision needs: Yes (reading glasses) Female Reproductive History Menstrual Age of Menarche: 12 Review of Systems Const Denies chills and Denies fever(s) Card Denies chest pain at rest and Denies dyspnea Resp Denies dyspnea Physical Exam Vital Signs: Last Vital Signs Pulse 90 08/01/25 09:15 BP 160/90 H 08/01/25 09:15 Const General: comfortable and no acute distress Chest Other: Left breast with some ecchymosis, incision is well healed, no obvious hematoma, signs of infection Assessment & Plan Assessment & Plan (1) Atypical ductal hyperplasia of left breast: Code(s): N60.92 - Unspecified benign mammary dysplasia of left breast Category: Medical Plan: Status post lumpectomy with the Hologic localizer. The path report shows atypical lobular hyperplasia, sclerosing lesion radial scar, duct ectasia without any evidence of malignancy or high-grade lesions I explained to her the benign nature of the pathology She has been recommended to undergo another imaging in 6 months I will discuss the findings with her then. Otherwise, she can follow up on a p.r.n. basis. Coding Level of Care Code Est Pt Level 3 (79594) Diagnoses Atypical ductal hyperplasia of left breast N60.92
[2025-08-01 09:15] VITALS: BP 160/90; PULSE 90
== END 2025-08-01 09:13 | disposition home or self-care (01) ==
LOC: HO.HGS 08:55
PROVIDERS: PCP Internal Medicine; Visit Provider Surgery
DX: N60.92 Unspecified benign mammary dysplasia of left breast (principal)
CPT/HCPCS: 99024

== ENCOUNTER 2025-08-12 09:09 | Outpatient (REF) | payer OTHER, SELFPAY ==
[2025-08-12 11:14] LABS: Thyroid Stimulating Hormone 0.21 uIU/mL (0.32-4.0)
== END 2025-08-12 09:10 | disposition home or self-care (01) ==
LOC: HO.HMGCLDS 09:09
PROVIDERS: PCP Internal Medicine; Visit Provider Internal Medicine
DX: E03.9 Hypothyroidism, unspecified (principal)
CPT/HCPCS: 36415; 84443

== ENCOUNTER 2025-09-26 10:05 | Outpatient (REF) | payer OTHER, SELFPAY ==
[2025-09-26 14:35] LABS: Thyroid Stimulating Hormone 0.18 uIU/mL (0.32-4.0)
== END 2025-09-26 10:06 | disposition home or self-care (01) ==
LOC: HO.HMGCLDS 10:05
PROVIDERS: PCP Internal Medicine; Visit Provider Internal Medicine
DX: E03.9 Hypothyroidism, unspecified (principal)
CPT/HCPCS: 36415; 84443

== ENCOUNTER 2025-10-07 08:52 | Outpatient (AMB) | payer OTHER, SELFPAY ==
--- NOTE | 2025-10-07 08:56 | MHC.PC.OV ---
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 Tobacco use date assessed: 05/06/25 Dental Screening Dental Screen Date: 05/06/25 [facility] Medical History Atypical ductal hyperplasia of left breast Abnormal mammogram of left breast Encounter for colorectal cancer screening using Cologuard test (~03/08/24) White coat syndrome with hypertension Hypothyroidism Surgical History History of lumpectomy of left breast Hx of left breast biopsy (05/16/25) History of ovarian cystectomy History of back surgery Family History Mother No problems noted. Father No problems noted. Social History Housing: House Are you a primary acute care certified nursing assistant to a significant other at home: No Do you presently have visiting nurse or other home services: No Patient Tobacco Use Status: Former Tobacco user e-Cigarette/Vaping Use: Former Use service: No Current occupational status: retired Cognitive needs: No Hearing needs: No Vision needs: Yes (reading glasses) Female Reproductive History Menstrual Age of Menarche: 12 Questionnaire PHQ-9 Over the last 2 weeks, how often have you been bothered by any of the following problems? 1. Little interest or pleasure in doing things: not at all 2. Feeling down, depressed, or hopeless: not at all 3. Trouble falling or staying asleep, or sleeping too much: not at all 4. Feeling tired or having little energy: not at all 5. Poor appetite or overeating: not at all 6. Feeling bad about yourself - or that you are a failure or have let yourself or your family down: not at all 7. Trouble concentrating on things, such as reading the newspaper or watching television: not at all 8. Moving or speaking so slowly that other people could have noticed. Or the opposite - being so fidgety or restless that you have been moving around a lot more than usual: not at all 9. Thoughts that you would be better off or of hurting yourself in some way: not at all Total score: 0 Depression Screening Interpretation: Negative Depression Screening Done: Yes Source: Developed by Drs. Manuel Schroeder, Phuong King, Eliazar Cedillo and colleagues, with an educational fabrizio from [employer]. Thrive Questionnaire Date Thrive assessed: 05/06/25 I am a: Patient Within the past 12 months, did the food you bought not last and you didn't have the money to get more?: Never true Within the past 12 months, did you worry whether your food would run out before you got money to buy more?: Never true Do you have trouble paying for medicines?: No Do you have trouble getting transportation to medical appointments?: No Do you have trouble paying your heating and electricity bill?: No Do you have trouble taking care of your child, family member or friend?: No Do you have trouble with day-to-day activities such as bathing, preparing meals, shopping, managing finances, etc.?: No Are you currently unemployed and looking for a job?: No Are you interested in more education?: No Currently or been in a relationship where the following occur: No concerns reported THRIVE Score: 0 AUDIT C Alcohol Use Questionnaire (AUDIT-C) 1. How often do you have a drink containing alcohol?: Never 3. How often do you have six or more drinks on one occasion?: Never Total Score: 0 SOEBIDA-7 AMB Questionnaire SOBEIDA-7 Date SOBEIDA - 7 assessed: 05/06/25 Feeling nervous, anxious, or on edge: 0 = Not at all Not being able to stop or control worryin = Not at all Worrying too much about different things: 0 = Not at all Trouble relaxin = Not at all Being so restless that it is hard to sit still: 0 = Not at all Becoming easily annoyed or irritable: 0 = Not at all Feeling afraid as if something awful might happen: 0 = Not at all Total SOBEIDA-7 score (0-4 normal; 5-9 mild; 10-14 moderate; 15-21 severe): 0 Source: Developed by Drs. Manuel Schroeder, Phuong King, Eliazar Cedillo and colleagues, with an educational fabrizio from [employer]. Physical exam (Primary Care) Vital Signs: Last Vital Signs Temp 97.6 F 10/07/25 08:58 Pulse 100 10/07/25 08:58 Resp 14 10/07/25 08:58 BP 193/108 H 10/07/25 08:58 Pulse Ox 98 10/07/25 08:58 Oxygen Delivery Method Room Air 10/07/25 08:58 BMI result Body Mass Index 20.4 Tobacco/Smoking Status: Tobacco use Status Tobacco use date assessed 05/06/25 10/07/25 08:58 Patient Tobacco Use Status Former Tobacco user 10/07/25 08:58 e-Cigarette/Vaping Use Former Use 10/07/25 08:58 PHQ-9: PHQ-9 Score PHQ-9: Total score 0 10/07/25 09:08 Depression Screening Interpretation: Negative Thrive Assessment: Date of Thrive Assessment Date Thrive assessed 05/06/25 10/07/25 08:58 Currently or been in a relationship where the following occur: No concerns reported Coding Level of Care Code Est Pt Level 4 (48510) Complex EM visit Add On G2211 Diagnoses White coat syndrome with hypertension I10 Assessment & Plan Assessment & Plan (1) White coat syndrome with hypertension: Code(s): I10 - Essential (primary) hypertension Category: Medical Plan: History of Present Illness - The patient is a 65-year-old female presenting with concerns about elevated blood pressure during appointments. - She reports feeling worked up during visits, which she associates with high blood pressure readings. - Her home blood pressure readings, last checked three weeks ago, have been around 128-130 mmHg. - The patient has a history of hypothyroidism and is currently taking Synthroid 100 mcg daily. - Her dosage was recently reduced from 112 mcg about a week and a half ago. - Blood work on May 28 showed her thyroid was off, and in June, her levels were very high. - The patient leads an active lifestyle, engaging in a lot of walking and yard work. - She reports being up to date on her flu shot and mammogram. Social History - Exercise: Patient reports doing a lot of walking and yard work. Review of Systems - Constitutional: Denies generalized anxiety but reports anxiety specific to medical appointments. - Respiratory: Denies dyspnea. - Cardiovascular: Denies shortness of breath. - Gastrointestinal: Reports normal bowel habits. - Neurological: Reports good sleep but notes her sleep was previously affected when her thyroid levels were off. Physical Exam General: Cooperative and healthy appearing Nutritional Appearance: Well nourished Orientation/consciousness: Patient oriented x3 Limitations: No limitations Head: Normal to inspection General: Appearance normal, both eyes and all related structures Neck: Normal visual inspection Chest: Normal palpation of entire chest wall Respiratory: No shortness of breath reported. ormal respiratory effort Neurology: Patient oriented x3. No anxiety reported except during appointments. Results - Labs: Blood work from May 28 was noted as fine, with the exception of the thyroid level which was off. - Thyroid levels were reported to be very high in June. Plan - Will initiate antihypertensive medication to manage consistently high in-clinic blood pressure readings. - The patient was counseled on potential side effects of the new medication, such as an irritating cough. - She is to monitor her blood pressure at home daily and maintain a log to bring to the next appointment. - Continue current dose of Synthroid 100 mcg daily for hypothyroidism. - Follow up in one month for a blood pressure check and to review the home monitoring log. - Repeat thyroid function tests at the one-month follow-up visit. - Prescriptions will be sent to [facility] in [place]. Discussion Notes I discussed with the patient her concern regarding high blood pressure readings during clinic visits. I noted that her blood pressure has been consistently high during her visits, which is concerning, and recommended that she start medication. We will begin with one medication now and she has agreed to this plan. I instructed her to monitor her blood pressure daily at home and maintain a log for review at our next visit. I informed her that a common side effect of the prescribed medication could be an irritating cough and that she should let me know if this occurs. We will follow up in one month to re-evaluate her blood pressure and also recheck her thyroid levels with blood work. Patient Instructions - Start taking the new blood pressure medication every day as prescribed. - Check your blood pressure at home every day and keep a written log of the readings. - Bring your blood pressure log with you to your next appointment. - Let us know if you develop any side effects, such as an irritating cough. - Continue taking your Synthroid 100 mcg daily. - We will see you back in the office in one month. Medications: New enalapril maleate 10 mg PO DAILY 90 tabs 1RF
[2025-10-07 08:58] VITALS: BP 193/108; PULSE 100; RESP 14; TEMP 36.4; O2SAT 98; BMI 20.4
== END 2025-10-07 09:21 | disposition home or self-care (01) ==
LOC: HO.HMCSH 08:52
PROVIDERS: PCP Internal Medicine; Visit Provider Internal Medicine
DX: I10 Essential (primary) hypertension (principal)

== ENCOUNTER 2025-11-11 09:42 | Outpatient (AMB) | payer OTHER, SELFPAY ==
[2025-11-11 09:46] VITALS: BP 174/97; PULSE 98; RESP 14; TEMP 36.8; O2SAT 99; BMI 20.2
--- NOTE | 2025-11-11 09:46 | A.OFFPC_ITS ---
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 Medication List - Last Reconciled 11/11/25 by Nitesh Galindo MD enalapril maleate 10 mg PO DAILY hydrochlorothiazide 25 mg PO DAILY Synthroid (levothyroxine) 100 mcg PO DAILY NS Tobacco use date assessed: 05/06/25 Dental Screening Dental Screen Date: 05/06/25 HPI HPI Comments History of Present Illness Details History of Present Illness - The patient is a 65-year-old female pr esenting for a follow-up visit for management of chronic conditions and health maintenance. - Regarding hypertension, the patient harvey s slightly elevated blood pressure readings in the office, but her home readings are low and reassuring. - The patient is on thyroid medication. - For health maintenance, she is up to d ate on her mammogram, with her next one scheduled in January. - She has also completed a Cologuard murtaza t, which was normal. - The patient reports being very active and walks a lot for exercise. Social History - Employment: Work is going well. - Exercise: Reports being very active an d walks a lot. Results - Tests and Diagnostics: Cologuard was n ormal. [facility] Medical History Atypical ductal hyperplasia of left breast Abnormal mammogram of left breast Encounter for colorectal cancer screening using Cologuard test (~03/08/24) White coat syndrome with hypertension Hypothyroidism Surgical History History of lumpectomy of left breast Hx of left breast biopsy (05/16/25) History of ovarian cystectomy History of back surgery Family History Mother No problems noted. Father No problems noted. Social History Housing: House Are you a primary childcare worker to a significant other at home: No Do you presently have visiting nurse or other home services: No Patient Tobacco Use Status: Former Tobacco user e-Cigarette/Vaping Use: Former Use service: No Current occupational status: retired Cognitive needs: No Hearing needs: No Vision needs: Yes (reading glasses) Female Reproductive History Menstrual Age of Menarche: 12 Questionnaire PHQ-9 Over the last 2 weeks, how often have you been bothered by any of the following problems? 1. Little interest or pleasure in doing things: not at all 2. Feeling down, depressed, or hopeless: not at all 3. Trouble falling or staying asleep, or sleeping too much: not at all 4. Feeling tired or having little energy: not at all 5. Poor appetite or overeating: not at all 6. Feeling bad about yourself - or that you are a failure or have let yourself or your family down: not at all 7. Trouble concentrating on things, such as reading the newspaper or watching television: not at all 8. Moving or speaking so slowly that other people could have noticed. Or the opposite - being so fidgety or restless that you have been moving around a lot more than usual: not at all 9. Thoughts that you would be better off or of hurting yourself in some way: not at all Total score: 0 Depression Screening Interpretation: Negative Depression Screening Done: Yes Source: Developed by Drs. Manuel Schroeder, Phuong King, Eliazar Cedillo and colleagues, with an educational fabrizio from [employer]. Thrive Questionnaire Date Thrive assessed: 05/06/25 I am a: Patient What is your living situation today?: I have a steady place to live Within the past 12 months, did the food you bought not last and you didn't have the money to get more?: Never true Within the past 12 months, did you worry whether your food would run out before you got money to buy more?: Never true Do you have trouble paying for medicines?: No Do you have trouble getting transportation to medical appointments?: No Do you have trouble paying your heating and electricity bill?: No Do you have trouble taking care of your child, family member or friend?: No Do you have trouble with day-to-day activities such as bathing, preparing meals, shopping, managing finances, etc.?: No Are you currently unemployed and looking for a job?: No Are you interested in more education?: No Please select the resources that you would like help with: None Currently or been in a relationship where the following occur: No concerns reported THRIVE Score: 0 AUDIT C Alcohol Use Questionnaire (AUDIT-C) 1. How often do you have a drink containing alcohol?: Never 3. How often do you have six or more drinks on one occasion?: Never Total Score: 0 SOBEIDA-7 AMB Questionnaire SOBEIDA-7 Date SOBEIDA - 7 assessed: 05/06/25 Feeling nervous, anxious, or on edge: 0 = Not at all Not being able to stop or control worryin = Not at all Worrying too much about different things: 0 = Not at all Trouble relaxin = Not at all Being so restless that it is hard to sit still: 0 = Not at all Becoming easily annoyed or irritable: 0 = Not at all Feeling afraid as if something awful might happen: 0 = Not at all Total SOBEIDA-7 score (0-4 normal; 5-9 mild; 10-14 moderate; 15-21 severe): 0 Source: Developed by Drs. Manuel Schroeder, Phuong King, Eliazar Cedillo and colleagues, with an educational fabrizio from [employer]. Review of Systems Narrative Review of Systems - Constitutional: Reports feeling well. Denies headaches. - Eyes: Denies blurred vision. - Gastrointestinal: Denies nausea and vomiting. - Neurological: Reports sleeping well. Physical exam (Primary Care) Vital Signs: Last Vital Signs Temp 98.3 F 11/11/25 09:46 Pulse 98 11/11/25 09:46 Resp 14 11/11/25 09:46 BP 167/98 H 11/11/25 09:55 Pulse Ox 99 11/11/25 09:46 Oxygen Delivery Method Room Air 11/11/25 09:46 BMI result Body Mass Index 20.2 Tobacco/Smoking Status: Tobacco use Status Tobacco use date assessed 05/06/25 11/11/25 09:48 Patient Tobacco Use Status Former Tobacco user 11/11/25 09:48 e-Cigarette/Vaping Use Former Use 11/11/25 09:48 PHQ-9: PHQ-9 Score PHQ-9: Total score 0 11/11/25 09:48 Depression Screening Interpretation: Negative Thrive Assessment: Date of Thrive Assessment Date Thrive assessed 05/06/25 11/11/25 09:48 Currently or been in a relationship where the following occur: No concerns reported Narrative Physical Exam General: Cooperative and healthy appearing Nutritional Appearance: Well nourished Orientation/consciousness: Patient oriented x3 Limitations: No limitations Head: Normal to inspection General: Appearance normal, both eyes and all related structures Neck: Normal visual inspection Chest: Normal palpation of entire chest wall Respiratory: Normal respiratory effort Neurology: Patient oriented x3 Office Procedures Flu Questionnaire Does the patient have a severe egg allergy?: No Does the patient have severe life threatening allergies?: No Does the patient have a fever or illness today?: No Has the patient ever had Guillain-Williamson Syndrome?: No Has the patient ever had any past reaction to a flu shot?: No Immunizations Fluarix [id number] (PF) 45 mcg (15 mcg x 3)/0.5 mL IM syringe Performing Provider: Nitesh Galindo MD [facility] Documented (not given) by: JASSI Jane on 11/11/25 09:54 Reason Not Given: Patient Refused Coding Level of Care Code Est Pt Level 4 (40733) Add On Problem Visit Only Diagnoses Hypothyroidism E03.9 Assessment & Plan Assessment & Plan (1) Hypothyroidism: Code(s): E03.9 - Hypothyroidism, unspecified Category: Medical Plan Plan - The patient will continue her current blood pressure medication. - A diuretic will be added to her regimen for blood pressure management. - The patient will continue her thyroid medication. - Thyroid levels will be checked, and the results will be communicated to the patient. - The patient will continue regular exercise. - She will follow up for her next mammogram in January. - A follow-up visit is scheduled in three months. Discussion Notes I discussed with the patient that her in-office blood pressure was slightly elevated but that her home readings were reassuringly low. We will add a diuretic to her current blood pressure medication, and I informed her there are no common side effects. The plan is to continue her thyroid medication, and I will check her thyroid levels and call her with the results. We confirmed she remains up-to-date with her mammogram and Cologuard screenings. I recommended she continue her current exercise routine. We will follow up in three months. Patient Instructions - Continue taking your current blood pressure medication. - A new water pill has been added to your prescriptions; you will now be taking two pills for blood pressure. - Continue taking your thyroid medication as prescribed. - We will check your thyroid levels, and I will call you with the results. - Continue your regular exercise, such as walking. - Your next follow-up appointment is in three months. Orders: Orders Influenza [id number] Immunization Today Z23 - Encounter for immunization T4 Thyroxine Today E03.9 - Hypothyroidism, unspecified Thyroid Stimulating Hormone Today E03.9 - Hypothyroidism, unspecified Free T4 (Free Thyroxine) Today E03.9 - Hypothyroidism, unspecified Medications: New hydrochlorothiazide 25 mg PO DAILY 90 tabs 1RF
[2025-11-11 09:55] VITALS: BP 167/98
== END 2025-11-11 10:08 | disposition home or self-care (01) ==
LOC: HO.HMCSH 09:42
PROVIDERS: PCP Internal Medicine; Visit Provider Internal Medicine
DX: E03.9 Hypothyroidism, unspecified (principal); Z23 Encounter for immunization

== ENCOUNTER → 2025-11-11 09:42 | Outpatient (BNVA) | payer OTHER, SELFPAY | PROVIDERS: PCP Internal Medicine; Visit Provider Internal Medicine | DX: E03.9 Hypothyroidism, unspecified (principal) | CPT/HCPCS: 90471; 96127 ==